=== PATIENT | female | born 1990 | race Caucasian/White ===

== ENCOUNTER → 2020-03-17 | Outpatient (CLI) | payer BC ==
[~2020-03-17] MED LIST: AMOXICILLIN500 MG PO; BIRTH CONTROL1 EAC1 PO; DIFLUCAN150 MG PO; DONNATAL PO; MOTRIN800 MG PO; ROXICET 325 MG PO; VERAPAMIL PO
== END | disposition home or self-care (01) ==
LOC: COVID19 12:02
PROVIDERS: ATTEND Internal Medicine
DX: U07.1 COVID-19 (principal)